=== PATIENT | male | born 1990 | race Two or more races ===

== ENCOUNTER → 2018-03-03 | Outpatient (CLI) | payer OTHER | END | disposition home or self-care (01) | LOC: PPHC LAB 14:59 | DX: Z02.0 Encounter for examination for admission to educational institution (principal) ==

== ENCOUNTER 2021-12-04 08:00 | Outpatient (CLI) | payer OTHER | END 2021-12-04 08:30 | disposition home or self-care (01) | LOC: PPH VACUNA 08:00 | PROVIDERS: ATTEND Emergency Medicine Pediatric Emergency Medicine | DX: Z23 Encounter for immunization (principal) ==

== ENCOUNTER → 2023-08-26 | Emergency (ER) | payer OTHER ==
[~2023-08-26] VITALS: Ht 167.6 cm; Wt 131.5 kg
== END | disposition home or self-care (01) ==
LOC: ER 09:48
DX: S61.412A Laceration without foreign body of left hand, initial encounter (principal); W26.0XXA Contact with knife, initial encounter; Y93.9 Activity, unspecified; Y92.9 Unspecified place or not applicable; Y99.0 Civilian activity done for income or pay